=== PATIENT | female | born 1965 | race African-American/Black ===

== ENCOUNTER 2022-12-14 12:20 | Inpatient (IN) | payer OTHER ==
[2022-12-14 12:45] VITALS: BMI 17.5
[2022-12-14] MEDS ORDERED: METHOCARBAMOL 500 MG TABLET PO PRN (14:45)
[2022-12-14] MEDS ORDERED: NALOXONE HCL 0.4 MG/ML VIAL IM PRN (14:45)
[2022-12-14] MEDS ORDERED: hydrOXYzine PAMOATE 25 MG CAPSULE (FP) PO PRN (14:45)
[2022-12-14] MEDS ORDERED: ACETAMINOPHEN 325 MG TABLET (FP) PO PRN (14:45)
[2022-12-14] MEDS ORDERED: guaiFENesin 600 MG TABLET.ER (FP) PO PRN (14:45)
[2022-12-14] MEDS ORDERED: NICOTINE 10 MG CARTRIDGE (INHALER) IH PRN (14:45)
[2022-12-14] MEDS ORDERED: IBUPROFEN 400 MG TABLET (FP) PO PRN (14:45)
[2022-12-14] MEDS ORDERED: LOPERAMIDE HCL 2 MG CAPSULE PO PRN (14:45)
[2022-12-14] MEDS ORDERED: MAG HYDROX/AL HYDROX/SIMETH 30 ML UNIT-DOSE CUP PO PRN (14:45)
[2022-12-14] MEDS ORDERED: IBUPROFEN 600 MG TABLET (FP) PO PRN (14:45)
[2022-12-14] MEDS ORDERED: MAGNESIUM HYDROX 2400MG/30ML ORAL SUSPENSION 30 ML CUP PO PRN (14:45)
[2022-12-14] MEDS ORDERED: BISMUTH SUBSALICYLATE 524 MG/30 ML PO PRN (14:45)
[2022-12-14] MEDS ORDERED: POLYETHYLENE GLYCOL (HEALTHYLAX) 3350 17 GM PACKET PO PRN (14:45)
[2022-12-14] MEDS ORDERED: BENZOCAINE/MENTHOL (CHLORASEPTIC ) LOZENGE MM PRN (14:45)
[2022-12-14] MEDS ORDERED: DICYCLOMINE HCL 10 MG CAPSULE PO PRN (14:45)
[2022-12-14] MEDS ORDERED: ONDANSETRON *ODT* 4 MG TABLET SL PRN (14:45)
[2022-12-14] MEDS ORDERED: NALOXONE HCL (KLOXXADO) 8 MG SPRAY NS PRN (14:45)
[2022-12-14] MEDS ORDERED: BENZONATATE 200 MG CAPSULE PO PRN (14:45)
[2022-12-14] MEDS: THIAMINE HCL 100 MG TABLET (FP) PO SCH (22:44)
[2022-12-14] MEDS: MELATONIN 5 MG TABLETS PO SCH (22:44)
[2022-12-15] MEDS ORDERED: methaDONE HCL 40 MG DISPERSABLE TABLET PO ONE (06:00)
[2022-12-15 10:13] LABS: POTASSIUM 4.4 mmol/L (3.5-5.1)
[2022-12-15 10:14] LABS: HEMATOCRIT 35.1 % (32.4-45.2); HEMOGLOBIN 11.2 GM/dL (10.7-15.3); MCH 28.3 pg (25.7-33.7); MEAN CELL VOLUME 88.7 fl (80-96); MEAN PLT VOLUME 10.7 fl (7.5-11.1); PLATELET COUNT 118 10^3/uL (134-434); RBC 3.96 M/mm3 (3.60-5.2); RDW 15.2 % (11.6-15.6); WHITE BLOOD COUNT 2.3 K/mm3 (4.0-10.0)
[2022-12-15 10:15] LABS: CALCIUM 9.1 mg/dL (8.5-10.1)
[2022-12-15 10:16] LABS: ALBUMIN 3.3 g/dl (3.4-5.0); BLOOD UREA NITROGEN 11.9 mg/dL (7-18)
[2022-12-15 10:19] LABS: CREATININE 0.6 mg/dL (0.55-1.3)
[2022-12-15 10:20] LABS: BILIRUBIN,TOTAL 0.3 mg/dL (0.2-1)
[2022-12-15 10:21] LABS: TOT PROT 6.2 g/dl (6.4-8.2)
[2022-12-15] MEDS: PRENATAL VITAMINS W/ FOLIC ACID TABLET (FP) PO SCH (11:17)
[2022-12-15] MEDS: levETIRAcetam 500 MG TABLET (FP) PO SCH ×2 (15:11→22:43)
[2022-12-15] MEDS: diazePAM 5 MG TABLET PO SCH ×2 (17:38→22:44)
[2022-12-15] MEDS: THIAMINE HCL 100 MG TABLET (FP) PO SCH (22:43)
[2022-12-15] MEDS: MELATONIN 5 MG TABLETS PO SCH (22:43)
[2022-12-16] MEDS: diazePAM 5 MG TABLET PO SCH ×4 (05:53→22:20)
[2022-12-16] MEDS ORDERED: methaDONE HCL 10 MG TABLET PO ONE (09:24)
[2022-12-16] MEDS: PRENATAL VITAMINS W/ FOLIC ACID TABLET (FP) PO SCH (10:39)
[2022-12-16] MEDS: levETIRAcetam 500 MG TABLET (FP) PO SCH ×2 (10:39→22:20)
[2022-12-16] MEDS ORDERED: diazePAM 5 MG TABLET PO PRN (11:00)
[2022-12-16] MEDS: MELATONIN 5 MG TABLETS PO SCH (22:20)
[2022-12-16] MEDS: THIAMINE HCL 100 MG TABLET (FP) PO SCH (22:20)
[2022-12-17] MEDS: diazePAM 5 MG TABLET PO SCH ×3 (05:48→22:36)
[2022-12-17] MEDS ORDERED: methaDONE HCL 10 MG TABLET PO SCH (08:45)
[2022-12-17] MEDS: PRENATAL VITAMINS W/ FOLIC ACID TABLET (FP) PO SCH (10:18)
[2022-12-17] MEDS: levETIRAcetam 500 MG TABLET (FP) PO SCH ×2 (10:18→22:31)
[2022-12-17] MEDS: THIAMINE HCL 100 MG TABLET (FP) PO SCH (22:31)
[2022-12-17] MEDS: MELATONIN 5 MG TABLETS PO SCH (22:31)
[2022-12-18] MEDS: diazePAM 5 MG TABLET PO SCH ×2 (05:53→17:39)
[2022-12-18] MEDS: PRENATAL VITAMINS W/ FOLIC ACID TABLET (FP) PO SCH (09:41)
[2022-12-18] MEDS: MELATONIN 5 MG TABLETS PO SCH (22:34)
[2022-12-18] MEDS: THIAMINE HCL 100 MG TABLET (FP) PO SCH (22:34)
[2022-12-19] MEDS ORDERED: diazePAM 5 MG TABLET PO ONE (06:00)
[2022-12-19 09:09] VITALS: BP 102/74; PULSE 69; RESP 18; TEMP 98.8
[2022-12-19] MEDS: PRENATAL VITAMINS W/ FOLIC ACID TABLET (FP) PO SCH (10:34)
== END 2022-12-19 09:46 | disposition home or self-care (01) | DRG 773 ==
LOC: YASAS 12:20 → Y3N 16:43
PROVIDERS: ADMIT Allergy & Immunology; ATTEND Surgery
PROC: HZ2ZZZZ Detoxification Services for Substance Abuse Treatment (ICD-10-PCS; principal; 2022-12-14)
DX: F13.230 Sedative, hypnotic or anxiolytic dependence with withdrawal, uncomplicated (principal); F11.20 Opioid dependence, uncomplicated; F14.20 Cocaine dependence, uncomplicated; F17.210 Nicotine dependence, cigarettes, uncomplicated; F31.9 Bipolar disorder, unspecified; F20.9 Schizophrenia, unspecified; G40.909 Epilepsy, unspecified, not intractable, without status epilepticus; Z86.59 Personal history of other mental and behavioral disorders
CPT/HCPCS: 36415; 80053; 85027; 86780; 87635; 93005; 93010